=== PATIENT | male | born 1970 | race Caucasian/White ===

== ENCOUNTER 2020-11-17 21:11 | Emergency (ER) | payer OTHER ==
[2020-11-17 21:32] VITALS: BP 109/80; PULSE 66; TEMP 98.6; BMI 25.0
== END 2020-11-17 23:55 | disposition home or self-care (01) ==
LOC: JERFT 21:11
DX: F20.9 Schizophrenia, unspecified (principal); Z76.0 Encounter for issue of repeat prescription
CPT/HCPCS: 99281-25